=== PATIENT | male | born 1990 | race Caucasian/White ===

== ENCOUNTER 2017-09-20 09:27 | Emergency (ER) | payer OTHER ==
[2017-09-20 10:14] LABS: #Basophils 0.1 thou/uL (0.0-0.2); #Eosinphils 0.1 thou/uL (0.0-0.7); #Lymphocytes 3.1 thou/uL (1.20-3.40); #Monocytes 0.6 thou/uL (0.11-0.59); #Neutrophils 3.7 thou/uL (1.40-6.50); %Basophils 0.7 % (0.0-1.0); %Eosinophils 0.8 % (0.0-10.0); %Lymphocytes 41.3 % (21.0-51.0); %Monocytes 7.7 % (0.0-10.0); %Neutrophils 49.5 % (42.0-75.0); Hemoglobin 14.6 g/dL (14.0-18.0); Mean Corpuscular HGB CONC 33.2 g/dL (32.0-36.0); Mean Corpuscular Volume 90.3 fl (80.0-94.0); Platelet Count 183 thou/uL (130-400); RBC Distribution Width 10.9 % (11.5-14.5); Red Blood Cell (RBC) Count 4.89 mill/uL (4.70-6.10); White Blood Cell (WBC) Count 7.6 thou/uL (4.8-10.8)
[2017-09-20] MEDS ORDERED: Morphine 2 MG/ML SYRINGE ONE (10:29)
[2017-09-20] MEDS ORDERED: Ondansetron HCl/PF 4 MG/2 ML Vial ONE (10:30)
[2017-09-20 10:36] LABS: ALT (SGPT) 220 U/L (8-55); AST (SGOT) 149 U/L (5-34); Albumin 4.2 g/dL (3.5-5.0); Alkaline Phosphatase 76 U/L (40-150); Anion Gap 10 mmol/L (10-20); BUN (Urea Nitrogen) 12 mg/dL (8.9-20.6); Bilirubin, Total 0.6 mg/dL (0.2-1.2); Calc. Creatinine Clearance 0 mL/min (70-130); Calcium 9.2 mg/dL (7.8-10.44); Carbon Dioxide 27 mmol/L (22-29); Chloride 105 mmol/L (98-107); Estimated GFR-MDRD 64; Globulin 3.3 g/dL (2.4-3.5); Glucose 103 mg/dL (70-105); Lipase 25 U/L (8-78); Potassium 4.2 mmol/L (3.5-5.1); Protein, Total 7.5 g/dL (6.0-8.3); Sodium 138 mmol/L (136-145)
--- NOTE | 2017-09-20 10:53 | ULT ---
BILATERAL TESTICULAR ULTRASOUND WITH DOPPLER: (BARRIOS SCALE, COLOR FLOW, AND SPECTRAL DOPPLER) Date; 09/20/17 HISTORY: Left testicular pain. FINDINGS: The right testis measures 4.4 x 3.3 x 2.0 cm. The left testis measures 3.8 x 3.2 x 2.2 cm. No testicu lar mass or microlithiasis seen. The epididymides have a normal appearance. Symmetric blood flow is s een to the testicles and the epididymides on either side. Small bilateral hydroceles are present. IMPRESSION: Small bilateral hydroceles, otherwise unremarkable exam. POS: [facility]
[2017-09-20 10:55] LABS: Bilirubin Small (Negative); Blood, Urine Large (Negative); Glucose, Urine (Dipstick) Negative (Negative); Leukocyte Negative (Negative); Nitrite Negative (Negative); Protein, Urine (Dipstick) Trace mg/dL (Neg-Trace); Urobilinogen 0.2 mg/dL (0.2-1.0)
[2017-09-20 10:57] LABS: Clarity Hazy (Clear)
[2017-09-20 10:58] LABS: Specific Gravity, Urine 1.029 (1.002-1.036)
[2017-09-20 11:06] LABS: Bacteria/HPF None Seen HPF (None Seen); RBC/HPF GREATER THAN 50-TNTC HPF (0-3); Squamous Epithelial 0-3 HPF (0-3); WBC/HPF 0-3 HPF (0-3)
[2017-09-20 11:07] LABS: Crystals/HPF 1+ CA OXALATE HPF (Negative); Hyaline Casts/LPF NONE SEEN LPF (0-3 Hyaline)
[2017-09-20] MEDS ORDERED: Fentanyl 100 MCG/2 ML VIAL ONE (11:09)
--- NOTE | 2017-09-20 11:58 | CT ---
CT ABDOMEN AND PELVIS NONCONTRAST: History: Left flank pain. FINDINGS: There is distention of the left renal collecting system and ureter to the level of a 0.3 cm calculus at the left ureterovesicular junction. Right renal collecting system and ureter are decompressed. A 0 .3 cm calculus is present within the nohemy of the superior pole left kidney. A 0.2 cm calculus is pre sent within a nondilated midpole nohemy of the right kidney. Lack of contrast limits evaluation for other abnormalities. The spleen measures up to 14.5 cm with ca lcified granulomata. IMPRESSION: 1. Partial obstruction at a 3 mm left ureterovesicular junction calculus. 2. Additional smaller nonobstructing bilateral renal calculi. 3. Mild splenomegaly. Cause is not apparent. POS: [facility]
[2017-09-20] MEDS ORDERED: Ketorolac Tromethamine 30 MG/ML VIAL ONE (12:39)
[2017-09-23 20:16] LABS: Chlamydia by PCR Not Detected (NotDetected); GC by PCR Not Detected (NotDetected)
== END 2017-09-20 13:17 | disposition home or self-care (01) ==
LOC: ERS 09:27
DX: N20.2 Calculus of kidney with calculus of ureter (principal); R94.5 Abnormal results of liver function studies; N43.3 Hydrocele, unspecified
CPT/HCPCS: 36415; 74176; 76870; 80053; 81003; 81015; 83690; 85025; 87086; 87491; 87591; 93976; 96361; 96374; 96375; J1885; J2270; J2405; J3010